=== PATIENT | male | born 1985 | race Caucasian/White ===

== ENCOUNTER 2017-05-30 21:40 | Emergency (ER) | payer MEDICAID, OTHER ==
[2017-05-30 21:41] VITALS: BMI 25.8
[2017-05-30 21:57] VITALS: BP 119/69; RESP 20; TEMP 100.7; O2SAT 97
--- NOTE | 2017-05-30 22:14 | C.PDOC ---
History Of Present Illness Patient complains of fever 102F starting yesterday and today feels worse with generalized body aches, malaise, congestion and cough. He took OTC Delsym without relief. Denies any chest pain, SOB, abdominal pain. Time Seen by Provider: 05/30/17 21:56 Chief Complaint (Nursing): Cough, Cold, Congestion History Per: Patient History/Exam Limitations: no limitations Onset/Duration Of Symptoms: Days Current Symptoms Are (Timing): Still Present Location Of Pain: Diffuse Myalgias Associated Symptoms: Fever Past Medical History Reviewed: Historical Data, Nursing Documentation, Vital Signs Vital Signs: Last Vital Signs Temp 100.7 F H 05/30/17 21:55 Pulse 118 H 05/30/17 21:55 Resp 20 05/30/17 21:55 BP 119/69 05/30/17 21:55 Pulse Ox 97 05/30/17 21:55 - Medical History PMH: HTN, Hypercholesterolemia, TIA Surgical History: Tonsillectomy Family History: States: [place], CAD - Social History Hx Alcohol Use: No Hx Substance Use: No - Immunization History Hx Tetanus Toxoid Vaccination: Yes Hx Influenza Vaccination: Yes Hx Pneumococcal Vaccination: No Review Of Systems Constitutional: Positive for: Fever Eyes: Negative for: Vision Change, Redness ENT: Positive for: Nose Congestion. Negative for: Ear Pain, Throat Pain Cardiovascular: Negative for: Chest Pain Respiratory: Positive for: Cough. Negative for: Shortness of Breath, Sputum Gastrointestinal: Negative for: Vomiting, Abdominal Pain, Diarrhea Genitourinary: Negative for: Dysuria Musculoskeletal: Positive for: Other (body aches) Skin: Negative for: Rash Neurological: Negative for: Weakness, Numbness, Headache, Dizziness Physical Exam - Physical Exam Appears: Non-toxic, No Acute Distress Skin: Warm, Dry, No Rash Head: Atraumatic, Normacephalic Eye(s): bilateral: Normal Inspection, EOMI Ear(s): Bilateral: Normal (no erythema) Nose: Normal, No Flaring Oral Mucosa: Moist Throat: Normal, No Erythema, No Exudate, No Drooling Neck: Normal ROM Lymphatic: Normal Exam, No Adenopathy Chest: Symmetrical Cardiovascular: Rhythm Regular, No Murmur Respiratory: Normal Breath Sounds, No Accessory Muscle Use, No Rales, No Rhonchi , No Wheezing Gastrointestinal/Abdominal: No Bowel Sounds, Soft, No Tenderness Extremity: Bilateral: Atraumatic, Normal ROM Neurological/Psych: Oriented x3, Normal Speech ED Course And Treatment O2 Sat by Pulse Oximetry: 97 Medical Decision Making Medical Decision Making: Patient with multiple symptoms including fever and quick onset. Patient given Tylenol and treated for flu with Tamiflu. Recommend Tylenol or Motrin alternating every 4-6 hours for Fever 100.4F or higher. Rest and drink plenty of fluids. Please follow up with your behavior therapist or clinic in 2-5 days for further evaluation. Disposition Counseled Patient/Family Regarding: Diagnosis, Need For Followup, Rx Given - Disposition Referrals: David Estevez MD [Staff Provider] - Disposition: HOME/ ROUTINE Disposition Time: 22:15 Condition: STABLE Additional Instructions: Tamiflu twice daily for 5 days. Tylenol or Motrin alternating every 4-6 hours for Fever 100.4F or higher. Rest and drink plenty of fluids. Please follow up with your behavior therapist or clinic in 2-5 days for further evaluation. Prescriptions: Oseltamivir [Tamiflu] 75 mg PO BID #10 cap Instructions: Influenza (ED) - POA Present On Arrival: None - Clinical Impression Clinical Impression: Influenza
[2017-05-30 22:38] VITALS: PULSE 107
== END 2017-05-30 22:37 | disposition home or self-care (01) ==
LOC: C.ER 21:40
DX: J11.1 Influenza due to unidentified influenza virus with other respiratory manifestations (principal)